=== PATIENT | male | born 1990 | race Caucasian/White ===

== ENCOUNTER 2019-11-06 01:41 | Emergency (ER) | payer SELFPAY ==
[~2019-11-06] VITALS: Ht 170.2 cm; Wt 106.8 kg
[2019-11-06 02:58] LABS: BASO % 1 % (0-3); EOS # 0.1 x10^3/uL (0.0-0.7); EOS % 1 % (0-3); HEMATOCRIT 41.6 % (39.0-53.0); HEMOGLOBIN 13.7 g/dL (13.0-17.5); LYMPH # 1.8 x10^3/uL (1.0-4.8); LYMPH % 22 % (24-48); MEAN CORPUSCULAR HEMOGLOBIN 27 pg (25-35); MEAN CORPUSCULAR HGB CONC 33 g/dL (31-37); MEAN CORPUSCULAR VOLUME 82 fL (79-100); MONO # 0.7 x10^3/uL (0.0-1.1); MONO % 9 % (0-9); NEUT # 5.5 x10^3/uL (1.8-7.7); NEUT % 68 % (31-73); PLATELET COUNT 246 x10^3/uL (140-400); RED CELL DISTRIBUTION WIDTH 15.3 % (11.5-14.5)
[2019-11-06] MEDS ORDERED: methylPREDNISolone SOD SUCC PF 125 MG/2 ML VIAL. IV ONE (03:00)
[2019-11-06] MEDS ORDERED: diphenhydrAMINE 50 MG/ML VIAL IVP ONE (03:00)
[2019-11-06 03:10] LABS: CALCIUM 8.8 mg/dL (8.5-10.1); CREATININE 0.9 mg/dL (0.7-1.3); GFR 99.1; POTASSIUM 3.6 mmol/L (3.5-5.1)
[2019-11-06 03:15] LABS: PROTHROMBIN TIME PATIENT 12.2 SEC (11.7-14.0)
[2019-11-06 03:16] LABS: ALBUMIN 3.8 g/dL (3.4-5.0); ALBUMIN/GLOBULIN RATIO 1.1 (1.0-1.7); MAGNESIUM 1.9 mg/dL (1.8-2.4); TOTAL BILIRUBIN 0.6 mg/dL (0.2-1.0); TOTAL PROTEIN 7.3 g/dL (6.4-8.2)
[2019-11-06] MEDS ORDERED: RACEPINEPHRINE 2.25% 0.5 ML NEBU. NEB ONE (03:30)
[2019-11-06] MEDS ORDERED: CONTRAST GIVEN. MC PRN (03:45)
--- NOTE | 2019-11-06 03:45 | PHYS DOC ---
Past Medical History Past Medical History: DVT, Other Additional Past Medical Histor: CHEST PAIN, PE Past Surgical History: Appendectomy, Other Additional Past Surgical Histo: SEPTOPLASTY Smoking Status: Never Smoker Alcohol Use: None General Adult EDM: Chief Complaint: ALLERGIC REACTION HPI: HPI: Patient is a 29 year old male who presented to ER today for evaluation of tr ouble breathing after taking Zyrtec for nasal congestion upper respiratory symptoms. Patient also feels itchy and rash on his face. Patient said he was admitted at [facility] 2 days ago for chest pain and trouble breathing. They tested him for COVID-19 and it came back negative. Patient said he works for [employer]. He is from [place], he drove up here. Patient has history of blood clot in his lung, he has been on Eliquis. Patient had not taken his Eliquis for 5 days. Patient said he is supposed be on Eliquis for 6 months and he is about to be done with taking the Eliquis. She denies any cough or fever, no abdominal pain, no nausea vomiting. Patient has history of diabetes, denies history hypertension. Review of Systems: Review of Systems: Constitutional: Denies fever or chills. [] Eyes: Denies change in visual acuity. [] HENT: Denies nasal congestion or sore throat. [] Respiratory: Denies cough , positive for shortness of breath. [] Cardiovascular: Denies chest pain or edema. [] GI: Denies abdominal pain, nausea, vomiting, bloody stools or diarrhea. [] : Denies dysuria. [] Musculoskeletal: Denies back pain or joint pain. [] Integument: Positive for facial rash and itchy. Neurologic: Denies headache, focal weakness or sensory changes. [] Endocrine: Denies polyuria or polydipsia. [] Lymphatic: Denies swollen glands. [] Psychiatric: Denies depression or anxiety. [] Heart Score: Risk Factors: Risk Factors: DM, Current or recent (<one month) smoker, HTN, HLP, family history of CAD, obesity. Risk Scores: Score 0 - 3: 2.5% MACE over next 6 weeks - Discharge Home Score 4 - 6: 20.3% MACE over next 6 weeks - Admit for Clinical Observation Score 7 - 10: 72.7% MACE over next 6 weeks - Early Invasive Strategies Current Medications: Current Medications Medications (Trade) Dose Ordered Sig/Christa Start Time Stop Time Status Last Admin Dose Admin Diphenhydramine HCl (Benadryl) 50 mg 1X ONCE 11/06/19 03:00 11/06/19 03:01 DC 11/06/19 03:15 50 MG Epinephrine (S2 Racepinephrine) 0.5 ml 1X ONCE 11/06/19 03:30 11/06/19 03:31 DC Methylprednisolone Sodium Succinate (SOLU-Medrol 125MG VIAL) 125 mg 1X ONCE 11/06/19 03:00 11/06/19 03:01 DC 11/06/19 03:15 125 MG Allergies: Allergies: Allergies Coded Allergies Type Severity Reaction Last Updated Verified No Known Drug Allergies 11/06/19 No Physical Exam: PE: Constitutional: Well developed, well nourished, no acute distress, non-toxic appearance. [] HENT: Normocephalic, atraumatic, bilateral external ears normal, oropharynx moist, no oral exudates, nose normal. [] Eyes: PERRLA, EOMI, conjunctiva normal, no discharge. [] Neck: Normal range of motion, no tenderness, supple, no stridor. [] Cardiovascular:Heart rate regular rhythm, no murmur [] Lungs & Thorax: Bilateral breath sounds diminished to auscultation. Abdomen: Bowel sounds normal, soft, no tenderness, no masses, no pulsatile mas ses. [] Skin: Warm, dry, macular rash on face and neck, no angioedema, no tongue or lip swelling. Back: No tenderness, no CVA tenderness. [] Extremities: No tenderness, no cyanosis, no clubbing, ROM intact, no edema. [] Neurologic: Alert and oriented X 3, normal motor function, normal sensory function, no focal deficits noted. [] Psychologic: Affect normal, judgement normal, mood normal. [] Current Patient Data: Labs: Laboratory Tests Test 11/06/19 02:50 White Blood Count 8.0 x10^3/uL (4.0-11.0) Red Blood Count 5.10 x10^6/uL (4.30-5.70) Hemoglobin 13.7 g/dL (13.0-17.5) Hematocrit 41.6 % (39.0-53.0) Mean Corpuscular Volume 82 fL (79-100) Mean Corpuscular Hemoglobin 27 pg (25-35) Mean Corpuscular Hemoglobin Concent 33 g/dL (31-37) Red Cell Distribution Width 15.3 % (11.5-14.5) H Platelet Count 246 x10^3/uL (140-400) Neutrophils (%) (Auto) 68 % (31-73) Lymphocytes (%) (Auto) 22 % (24-48) L Monocytes (%) (Auto) 9 % (0-9) Eosinophils (%) (Auto) 1 % (0-3) Basophils (%) (Auto) 1 % (0-3) Neutrophils # (Auto) 5.5 x10^3/uL (1.8-7.7) Lymphocytes # (Auto) 1.8 x10^3/uL (1.0-4.8) Monocytes # (Auto) 0.7 x10^3/uL (0.0-1.1) Eosinophils # (Auto) 0.1 x10^3/uL (0.0-0.7) Basophils # (Auto) 0.0 x10^3/uL (0.0-0.2) Prothrombin Time 12.2 SEC (11.7-14.0) Prothrombin Time INR 0.9 (0.8-1.1) Activated Partial Thromboplast Time 26 SEC (24-38) Sodium Level 139 mmol/L (136-145) Potassium Level 3.6 mmol/L (3.5-5.1) Chloride Level 102 mmol/L (98-107) Carbon Dioxide Level 27 mmol/L (21-32) Anion Gap 10 (6-14) Blood Urea Nitrogen 14 mg/dL (8-26) Creatinine 0.9 mg/dL (0.7-1.3) Estimated GFR (Cockcroft-Gault) 99.1 BUN/Creatinine Ratio 16 (6-20) Glucose Level 98 mg/dL (70-99) Calcium Level 8.8 mg/dL (8.5-10.1) Magnesium Level 1.9 mg/dL (1.8-2.4) Total Bilirubin 0.6 mg/dL (0.2-1.0) Aspartate Amino Transferase (AST) 13 U/L (15-37) L Alanine Aminotransferase (ALT) 58 U/L (16-63) Alkaline Phosphatase 81 U/L (46-116) Troponin I Quantitative < 0.017 ng/mL (0.000-0.055) XB-Lyk-L-Type Natriuretic Peptide 10 pg/mL (0-124) Total Protein 7.3 g/dL (6.4-8.2) Albumin 3.8 g/dL (3.4-5.0) Albumin/Globulin Ratio 1.1 (1.0-1.7) Laboratory Tests 11/06/19 02:50 Laboratory Tests 11/06/19 02:50 Vital Signs: Vital Signs Date Time Temp Pulse Resp B/P (MAP) Pulse Ox O2 Delivery O2 Flow Rate FiO2 11/06/19 01:47 98.1 112 21 193/99 (130) 98 Room Air 98.1 EKG: EKG: Interpreted by emergency department physician Rhythm: Sinus rhythm Rate: 99 Ectopy: No ectopy Conduction: Normal conduction ST Segments: No ST segment T Waves: Normal T waves Q Waves: No Clinical Impression: Normal sinus rhythm Radiology/Procedures: Radiology/Procedures: [][facility] [address] [place] [address] IMAGING REPORT Signed PATIENT: DEDRA MCKEON ACCOUNT: [id number] : 1990 LOCATION: ER AGE: 29 SEX: M EXAM STATUS: REG ER ORD. PHYSICIAN: MEETA LUIS DO REASON: soa, chest pain PROCEDURE: CT ANGIOGRAPHY CHEST CT angiography chest with contrast PQRS statement: CT scans at this facility use dose reduction including either automated exposure control, iterative reconstructions, and /or weight based radiation dosing via mA and kV modification when appropriate to reduce radiation dose to as low as reasonably achievable. HISTORY: Chest pain shortness of breath. TECHNIQUE: CT imaging of the chest with 3-D MIP reconstructions of the pulmonary arteries with 100 mL Omnipaque 300 intravenous contrast. FINDINGS: Heart size normal. Thoracic aorta and esophagus are unremarkable. No adenopathy in the chest. There is mild respiratory motion resulting in misregistration of the pulmonary vessels may decrease sensitivity to detect subtle small peripheral lobar emboli. In light of this no pulmonary artery emboli are evident. No pneumothorax, pulmonary opacities or pleural effusions. Trachea and bronchi are unremarkable. Right middle lobe 4 mm solid nodule image 101. Bones are unremarkable. IMPRESSION: 1. No acute process. No pulmonary artery emboli. See above. 2. 4 mm solid nodule right middle lobe. Per Fleischner guidelines if the patient has risk factors for malignancy optional CT follow-up in 12 months would be advised, otherwise no follow-up is necessary. Electronically signed by: Kacie Marroquin MD (11/06/2019 4:21 AM) [facility] DICTATED and SIGNED BY: KACIE MARROQUIN MD DATE: 11/06/19 042 Course & Med Decision Making: Course & Med Decision Making Pertinent Labs and Imaging studies reviewed. (See chart for details) Patient felt much better. His work up did not show any acute problem. He was discharged in stable condition. Dragon Disclaimer: Dragon Disclaimer: This electronic medical record was generated, in whole or in part, using a voice recognition dictation system. Departure Departure Impression: Primary Impression: Allergic reaction Disposition: HOME, SELF-CARE Condition: GOOD Referrals: NO PCP (PCP) please follow up with your doctor on Saturday Patient Instructions: Allergies, Generic Additional Instructions: Thank you for visiting our Emergency Department. We appreciate you trusting us with your care. If any additional problems come up don't hesitate to return to visit us. Please follow up with your primary care provider so they can plan additional care if needed and know about the problem that you had. If symptoms worsen come back to the Emergency Department. Any concerning symptoms that start such as chest pain, shortness of air, weakness or numbness on one side of the body, running high fevers or any other concerning symptoms return to the ER. Scripts Prednisone (PREDNISONE) 20 Mg Tablet 2 TAB PO DAILY for 5 Days, #10 TAB Prov: MEETA LUIS DO 11/06/19 Justicifation of Admission Dx: Justifications for Admission: Justification of Admission Dx: N/A MEETA LUIS DO Nov 06, 2019 03:45
[2019-11-06] MEDS ORDERED: IOHEXOL 350 MG/ML 100 ML VIAL. IV ONE (04:00)
--- NOTE | 2019-11-06 04:24 | RAD ---
CT angiography chest with contrast PQRS statement: CT scans at this facility use dose reduction including either automated exposure control, iterative reconstructions, and /or weight based radiation dosing via mA and kV modification when appropriate to reduce radiation dose to as low as reasonably achievable. HISTORY: Chest pain shortness of breath. TECHNIQUE: CT imaging of the chest with 3-D MIP reconstructions of the pulmonary arteries with 100 mL Omnipaque 300 intravenous contrast. FINDINGS: Heart size normal. Thoracic aorta and esophagus are unremarkable. No adenopathy in the chest. There is mild respiratory motion resulting in misregistration of the pulmonary vessels may decrease sensitivity to detect subtle small peripheral lobar emboli. In light of this no pulmonary artery emboli are evident. No pneumothorax, pulmonary opacities or pleural effusions. Trachea and bronchi are unremarkable. Right middle lobe 4 mm solid nodule image 101. Bones are unremarkable. IMPRESSION: 1. No acute process. No pulmonary artery emboli. See above. 2. 4 mm solid nodule right middle lobe. Per Fleischner guidelines if the patient has risk factors for malignancy optional CT follow-up in 12 months would be advised, otherwise no follow-up is necessary. Electronically signed by: Peña Marroquin MD (11/06/2019 4:21 AM) [facility]
[2019-11-06] MEDS ORDERED: PRED20TA PO (04:37)
[2019-11-06 05:15] VITALS: BP 140/94
--- NOTE | 2019-11-06 06:30 | EKG ---
[facility] [address] [place] [address] Test Date: 2019-11-06 Test Time: 02:41:39 Pat Name: DEDRA MCKEON Department: Room: Gender: M [employer]el [employer]ger: : 1990 Requested By: MEETA LUIS Order Number: [id number] Reading MD: Measurements Intervals [place] Rate: 99 P: 34 DE: 144 QRS: 32 QRSD: 98 T: 22 QT: 328 QTc: 426 Interpretive Statements SINUS RHYTHM NORMAL ECG RI6.02 No previous ECG available for comparison
== END 2019-11-06 05:16 | disposition home or self-care (01) ==
LOC: ER 01:41
DX: R09.81 Nasal congestion (principal); T45.0X5A Adverse effect of antiallergic and antiemetic drugs, initial encounter; R07.89 Other chest pain; R21 Rash and other nonspecific skin eruption; Z86.73 Personal history of transient ischemic attack (TIA), and cerebral infarction without residual deficits; Z90.89 Acquired absence of other organs; Z98.890 Other specified postprocedural states; Y92.89 Other specified places as the place of occurrence of the external cause
CPT/HCPCS: 36415; 71275; 80053; 83735; 83880; 84484; 85025; 85610; 85730; 93005; 94640; 96374; 96375; 99285; J1200; J2930; Q9967